=== PATIENT | female | born 1950 | race Caucasian/White ===

== ENCOUNTER → 2017-01-06 | Outpatient (CLI) | payer MEDICARE ==
[~2017-01-06] MED LIST: ACET1TAB33 PO; ALPR0.5T6 PO; ASPI-482 PO; FLUO40CA9 PO; FURO80TA72 PO; GABA-586 PO; GADOBUTROL 7.5 MMOL/7.5 ML VIAL IV ONE; LEUC5TAB PO; METF10002 PO; ONDA8TAB9 PO; PALO0.25 IV; PRAV80TA2 PO; [UNRECOGNIZED DRUG - CODE] IV
--- NOTE | 2017-01-06 14:13 | RAD ---
PROCEDURE MRI brain with and without contrast. HISTORY Right-sided weakness and difficulty with speech beginning 3 weeks ago. Colon cancer and chemotherapy. TECHNIQUE Sagittal T1, axial T1, axial T2, axial FLAIR, axial T2 gradient, diffusion imaging with ADC map, post-contrast axial, and post-contrast coronal sequences are provided. 14 milliliters of intravenous Gadavist was administered without complication. There is mild motion degradation. COMPARISON CT head July 11, 2015. FINDINGS There is prominence of the ventricles and sulci, symmetric. FLAIR hyperintensities in the supratentorial white matter are nonspecific but most suggestive of minimal small vessel ischemic disease. There is no acute intracranial hemorrhage or extra-axial fluid collection. There is no mass effect or midline shift. There is no restricted diffusion to suggest an acute infarct. Allowing for the mild motion, there is no pathologic enhancement. Intracranial flow voids are preserved. There is a mostly empty sella. Cervicomedullary junction is unremarkable. There is partial opacification of the left mastoid air cells. Report was called to Dr. Sanchez's nurse, Priya, at 1408 hours. IMPRESSION - No acute intracranial findings. - Brain parenchymal volume loss and minimal probable small-vessel ischemic disease. - Mild motion degradation. Electronically signed by: Adam Taylor MD (Jan 06, 2017 14:12:15)
== END | disposition home or self-care (01) ==
LOC: MRI 12:15
PROVIDERS: ATTEND Internal Medicine
DX: R53.1 Weakness (principal); Z85.048 Personal history of other malignant neoplasm of rectum, rectosigmoid junction, and anus
CPT/HCPCS: 70553; A9585